=== PATIENT | female | born 1995 | race American Indian/Alaskan Native ===

== ENCOUNTER 2018-05-02 18:23 | Emergency (ER) | payer MEDICAID ==
[2018-05-02 18:31] VITALS: BP 105/72; PULSE 68; RESP 20; TEMP 98.2; O2SAT 100
--- NOTE | 2018-05-02 18:53 | C.PDOC ---
History Of Present Illness 22 year old female presents to the ED for evaluation after possible STD exposure. Patient states her partner advised her to get tested, but did not provider her with any additional details. Patient states she is asymptomatic and denies pain, vaginal discharge, or burning sensation with urination at this time. Time Seen by Provider: 05/02/18 18:34 Chief Complaint (Nursing): Female Genitourinary History Per: Patient History/Exam Limitations: no limitations Onset/Duration Of Symptoms: Hrs Current Symptoms Are (Timing): Still Present Additional History Per: Patient Past Medical History Reviewed: Historical Data, Nursing Documentation, Vital Signs Vital Signs: Last Vital Signs Temp 98.2 F 05/02/18 18:29 Pulse 68 05/02/18 18:29 Resp 20 05/02/18 18:29 BP 105/72 05/02/18 18:29 Pulse Ox 100 05/02/18 18:29 - Medical History PMH: No Chronic Diseases - Social History Hx Alcohol Use: No Hx Substance Use: No - Immunization History Hx Tetanus Toxoid Vaccination: No Hx Influenza Vaccination: No Hx Pneumococcal Vaccination: No Review Of Systems Constitutional: Positive for: Other (testing s/p possible STD exposure ) Gastrointestinal: Negative for: Abdominal Pain Genitourinary: Negative for: Dysuria, Vaginal Discharge, Pelvic Pain Physical Exam - Physical Exam Appears: Non-toxic, No Acute Distress Skin: Normal Color, Warm, Dry Oral Mucosa: Moist Neck: Supple Neurological/Psych: Normal Speech, Normal Cognition ED Course And Treatment O2 Sat by Pulse Oximetry: 100 (on RA) Pulse Ox Interpretation: Normal Medical Decision Making Medical Decision Making: Progress: Urinalysis ordered and reviewed. Disposition - Disposition Referrals: [facility] [place] [Outside] [facility] [Outside] Disposition: HOME/ ROUTINE Disposition Time: 19:37 Condition: GOOD Additional Instructions: You were treated for Gonorrhea and Chlamydia. Follow up with the OBGYN within 1- 2 days for further screening. Instructions: Screening for Sexually Transmitted Infections Forms: [facility] ([place]) - Clinical Impression Clinical Impression: STD exposure - PA / MANAGED CARE MANAGER / Resident Statement MD/DO has reviewed & agrees with the documentation as recorded. - Scribe Statement The provider has reviewed the documentation as recorded by the Scribe (Rosita Pascal) All medical record entries made by the Scribe were at my direction and personally dictated by me. I have reviewed the chart and agree that the record accurately reflects my personal performance of the history, physical exam, medical decision making, and the department course for this patient. I have also personally directed, reviewed, and agree with the discharge instructions and disposition.
[2018-05-02] MEDS ORDERED: cefTRIAXone 250 MG, Lidocaine Hydrochloride 1% 1 ML IM ONE (19:05)
[2018-05-02 19:17] LABS: SQUAMOUS EPITHIAL 2 /hpf (0-5); URINE BACTERIA RARE (<OCC); URINE BILIRUBIN NEGATIVE (NEGATIVE); URINE BLOOD NEGATIVE (NEGATIVE); URINE CLARITY Hazy (Clear); URINE COLOR Yellow (YELLOW); URINE GLUCOSE (UA) NORMAL (Normal); URINE LEUKOCYTE ESTERASE NEG Leu/uL (Negative); URINE PROTEIN 1+ mg/dL (NEGATIVE)
[2018-05-02 19:18] LABS: HCG,QUALITATIVE URINE NEGATIVE (NEGATIVE)
== END 2018-05-02 20:00 | disposition home or self-care (01) ==
LOC: C.ER 18:23
DX: Z20.2 Contact with and (suspected) exposure to infections with a predominantly sexual mode of transmission (principal)
CPT/HCPCS: 81001; 84703; 87086; 87491; 87591; 96372; 99283; J0696

== ENCOUNTER 2018-06-01 16:09 | Emergency (ER) | payer MEDICAID ==
[2018-06-01 16:27] VITALS: BP 114/76; PULSE 57; RESP 16; TEMP 99; O2SAT 100
[2018-06-01] MEDS ORDERED: Sodium Chloride 0.9% 1,000 ML IV ONE (16:54)
[2018-06-01] MEDS ORDERED: Sodium Chloride 0.9% 1,000 ML ONE (17:29)
[2018-06-01 17:37] LABS: BASO # 0.1 K/uL (0.0-0.2); EOS # 0.1 K/uL (0.0-0.7); EOS % 2.5 % (0.0-4.0); HEMOGLOBIN 11.8 g/dL (11.0-16.0); LYMPH # 1.8 K/uL (1.0-4.3); LYMPH % 41.6 % (20.0-40.0); MEAN CELL VOLUME 87.9 fL (81.0-99.0); MEAN CORPUSCULAR HEMOGLOBIN 30.3 pg (27.0-31.0); MEAN CORPUSCULAR HGB CONC 34.5 g/dL (33.0-37.0); MONO # 0.3 K/uL (0.0-0.8); MONO % 7.4 % (0.0-10.0); NEUT % 45.5 % (50.0-75.0); NRBC % 0.1 % (0.0-2.0); RBC 3.89 Mil/uL (3.80-5.20); RED CELL DISTRIBUTION WIDTH 11.8 % (11.5-14.5); WHITE BLOOD COUNT 4.3 K/uL (4.8-10.8)
--- NOTE | 2018-06-01 17:45 | C.PDOC ---
History Of Present Illness 22 year old female presents to ED with complaint of lightheadedness and nausea for 1 day. Patient reports 1 episode of vomiting that occurred today. She denies pain, loss of consciousness, chest pain and shortness of breathe. Time Seen by Provider: 06/01/18 16:47 Chief Complaint (Nursing): Dizziness/Lightheaded History Per: Patient History/Exam Limitations: no limitations Onset/Duration Of Symptoms: Days (1) Current Symptoms Are (Timing): Still Present Past Medical History Reviewed: Historical Data, Nursing Documentation, Vital Signs Vital Signs: Last Vital Signs Temp 99 F 06/01/18 16:26 Pulse 57 L 06/01/18 16:26 Resp 16 06/01/18 16:26 BP 114/76 06/01/18 16:26 Pulse Ox 100 06/01/18 16:26 - Medical History PMH: No Chronic Diseases Surgical History: No Surg Hx Family History: States: Unknown Family Hx - Social History Hx Alcohol Use: No Hx Substance Use: No - Immunization History Hx Tetanus Toxoid Vaccination: No Hx Influenza Vaccination: No Hx Pneumococcal Vaccination: No Review Of Systems Except As Marked, All Systems Reviewed And Found Negative. Cardiovascular: Positive for: Light Headedness. Negative for: Chest Pain Respiratory: Negative for: Shortness of Breath Gastrointestinal: Positive for: Nausea, Vomiting Physical Exam - Physical Exam Appears: Well, Non-toxic, No Acute Distress Skin: Normal Color, Warm, Dry Head: Atraumatic, Normacephalic Eye(s): bilateral: Normal Inspection, PERRL, EOMI Nose: Normal Oral Mucosa: Moist Chest: Symmetrical Cardiovascular: Rhythm Regular, No Murmur Respiratory: Normal Breath Sounds, No Rales, No Wheezing Gastrointestinal/Abdominal: Normal Exam, Soft, No Tenderness Extremity: Bilateral: Atraumatic, Normal Color And Temperature, Normal ROM Neurological/Psych: Oriented x3, Normal Speech, Normal Cognition ED Course And Treatment - Laboratory Results Result Diagrams: 06/01/18 17:27 06/01/18 17:27 ECG: Interpreted By Me, Viewed By Me ECG Rhythm: Sinus Bradycardia Interpretation Of ECG: Normal interval. Normal axis. J-point ST-elevation changes. Rate From EC O2 Sat by Pulse Oximetry: 100 (in RA) Medical Decision Making Medical Decision Making: Assessment: Weakness Plan: EKG ordered for patient Labs ordered with CBC, CMP, and UA Patient given IV fluids and Zofran IVP orthostatics improved after hydration. Disposition Counseled Patient/Family Regarding: Studies Performed, Diagnosis, Need For Followup, Rx Given - Disposition Referrals: [facility] [Outside] Disposition: HOME/ ROUTINE Disposition Time: 19:30 Condition: STABLE Additional Instructions: follow up with medical clinic within 2 days call to make an appointment take medication as needed for nausea return to ER if symptoms worsens or progress Prescriptions: Ondansetron ODT [Zofran ODT] 4 mg PO TID PRN #12 odt PRN Reason: Nausea/Vomiting Instructions: Dehydration, Adult (DC) Forms: [facility] (Bahamian), General Discharge Instructions - Clinical Impression Clinical Impression: Dehydration - Scribe Statement The provider has reviewed the documentation as recorded by the Scribe (Palak Saldivar) All medical record entries made by the Scribe were at my direction and personally dictated by me. I have reviewed the chart and agree that the record accurately reflects my personal performance of the history, physical exam, [facility] decision making, and the department course for this patient. I have also personally directed, reviewed, and agree with the discharge instructions and disposition.
[2018-06-01 17:49] LABS: SQUAMOUS EPITHIAL 2 /hpf (0-5); URINE BACTERIA RARE (<OCC); URINE BILIRUBIN NEGATIVE (NEGATIVE); URINE BLOOD NEGATIVE (NEGATIVE); URINE CLARITY Hazy (Clear); URINE COLOR Yellow (YELLOW); URINE GLUCOSE (UA) NORMAL (Normal); URINE LEUKOCYTE ESTERASE NEG Leu/uL (Negative); URINE PROTEIN 2+ mg/dL (NEGATIVE)
[2018-06-01 17:55] LABS: ALB/GLOB RATIO 1.5 (1.0-2.1); ALBUMIN 4.4 g/dL (3.5-5.0); AST/SGOT 27 U/L (14-36); BLOOD UREA NITROGEN 16 mg/dL (7-17); CALCIUM 9.4 mg/dl (8.6-10.4); GFR NON-AFRICAN AMERICAN > 60
[2018-06-01 18:16] LABS: ALT/SGPT < 6 U/L (9-52)
--- NOTE | 2018-06-02 11:07 | CARD ---
APPROVED REPORT Date of service: 06/01/2018 EKG Measurement Heart [id number] <Conclusion> Sinus bradycardia Cannot rule out Anterior infarct, age undetermined Abnormal ECG
== END 2018-06-01 19:36 | disposition home or self-care (01) ==
LOC: C.ER 16:09
DX: E86.0 Dehydration (principal)
CPT/HCPCS: 80053; 81001; 81025; 85025; 93005; 96374; 99285; J2405; J7030